=== PATIENT | male | born 1940 | race Caucasian/White ===

== ENCOUNTER 2017-04-13 09:09 | Inpatient (IN) | payer MEDICARE ==
[~2017-04-13] VITALS: Ht 165.1 cm; Wt 73.5 kg
--- NOTE | 2017-04-13 09:21 | NUR ---
Dr Sutton at the bedside for eval and exam.
[2017-04-13] MEDS ORDERED: POTA10TA15 PO (09:28)
[2017-04-13] MEDS ORDERED: FOLI1TAB16 PO (09:28)
[2017-04-13] MEDS ORDERED: METO-302 PO (09:28)
[2017-04-13] MEDS ORDERED: METHOTREXATE SQ (09:28)
[2017-04-13] MEDS ORDERED: OMEP40CA37 PO (09:28)
[2017-04-13] MEDS ORDERED: ASPIRIN 81 MG TAB.CHEW PO ONE (09:30)
[2017-04-13] MEDS ORDERED: ASPIRIN 81 MG TAB.CHEW ONE (09:43)
--- NOTE | 2017-04-13 10:00 | NUR ---
Patient is resting comfortably in bed, drnies chest pain and SOB.
[2017-04-13 10:10] LABS: BASOPHILS % (AUTO) 0.4 % (0.0-2.0); EOSINOPHILS # (AUTO) 0.1 K/uL (0.0-0.7); EOSINOPHILS % (AUTO) 2.6 % (0.0-7.0); HEMATOCRIT 35.3 % (40-50); HEMOGLOBIN 11.5 G/DL (14.0-18.0); LYMPHOCYTES # (AUTO) 0.6 K/UL (0.8-4.8); LYMPHOCYTES % (AUTO) 11.5 % (20.5-51.5); MEAN CORPUSCULAR HEMOGLOBIN 33.5 UUG (27.0-31.0); MEAN CORPUSCULAR HGB CONC 32 g/dL (32.0-37.0); MEAN CORPUSCULAR VOLUME 103.1 FL (82.0-92.0); MONOCYTES # (AUTO) 0.6 K/UL (0.1-1.30); MONOCYTES % (AUTO) 11.4 % (0.0-11.0); NEUTROPHILS # (AUTO) 3.9 K/UL (1.8-8.9); NEUTROPHILS % (AUTO) 74.1 % (38.5-71.5); PLATELET COUNT (AUTO) 161 K/UL (150-450); RED BLOOD CELL COUNT(AUTO) 3.43 MIL/UL (4.7-6.1); WHITE BLOOD COUNT (AUTO) 5.2 K/UL (4.0-11.2)
[2017-04-13 10:18] LABS: CARBON DIOXIDE 25 mmol/L (21-32); CHLORIDE 108 mmol/L (98-107); CREATININE 1.1 mg/dL (0.6-1.3); GLUCOSE 104 mg/dL (74-106); POTASSIUM 4.2 mmol/L (3.5-5.1); UREA NITROGEN, BLOOD 25 mg/dL (7-18)
[2017-04-13 10:31] LABS: ALANINE AMINOTRANSFERASE 12 U/L (16-63); ALKALINE PHOSPHATASE 92 U/L (50-136); ASPARTATE AMINOTRANSFERASE 20 U/L (15-37); BILIRUBIN,DIRECT 0.1 mg/dL (0.0-0.2); BILIRUBIN,TOTAL 0.5 mg/dL (0.2-1.0); TOTAL PROTEIN, SERUM 6.7 g/dL (6.4-8.2)
--- NOTE | 2017-04-13 11:17 | NUR ---
PT NOT CANDIDATE FOR MRSA. BELONGING LIST COMPLETED.
[2017-04-13 11:30] VITALS: BP 142/62
--- NOTE | 2017-04-13 11:59 | NUR ---
NEW ADMISSION ARRIVED TO ROOM 226 WITH DX CHEST PAIN. PATIENT A+OX4. SB ON TELEMETRY. DENIED CP AT THIS TIME. VSS. CALLED PLACED TO DR. AHUJA.
[2017-04-13] MEDS ORDERED: HYDROCODONE/APAP 5-325MG TABLET PO PRN (15:45)
[2017-04-13] MEDS ORDERED: MAGNESIUM HYDROXIDE 30 ML LIQUID UDC PO PRN (15:45)
[2017-04-13] MEDS ORDERED: ONDANSETRON 4 MG/2 ML VIAL IV PRN (15:45)
[2017-04-13] MEDS ORDERED: ZOLPIDEM 5 MG TABLET PO PRN (15:45)
[2017-04-13] MEDS ORDERED: ACETAMINOPHEN 325 MG TABLET PO PRN (15:45)
[2017-04-13 16:09] VITALS: BP 98/54
--- NOTE | 2017-04-13 18:46 | NUR ---
END OF SHIFT NOTE: PATIENT IN NO ACUTE DISTRESS THROUGHOUT SHIFT. VSS. DENIED CP. H.L. INTACT AND PATENT. BRP. PATIENT SEEN BY IT HELP DESK TECHNICIAN. NEW ORDERS RECEIVED FOR LEXISCAN AT 2 PM TOMORROW 04/14/17.
[2017-04-13 20:26] VITALS: BP 95/48
[2017-04-13] MEDS ORDERED: DOCUSATE SODIUM 250 MG CAPSULE PO SCH (21:00)
[2017-04-13] MEDS: METOPROLOL TARTRATE 25 MG TABLET PO SCH (21:00)
[2017-04-13] MEDS ORDERED: DOCUSATE SODIUM 100 MG CAPSULE PO SCH (21:00)
[2017-04-13] MEDS ORDERED: ATORVASTATIN 20 MG TABLET PO SCH (21:00)
--- NOTE | 2017-04-13 21:00 | NUR ---
RES IN BED, RESTING COMFORTABLY. RESP IS EVEN AND UNLABORED, NO SOB. NO ACUTE DISTRESS. B/P NOTED AT 95/48 AND HR 52, METOPROLOL HELD. WILL CONT TO MONITOR. CONSENT FORM FOR LEXISCAN SIGNED BY PT.
[2017-04-14 00:19] VITALS: BP 127/65
[2017-04-14 04:58] VITALS: BP 97/56
--- NOTE | 2017-04-14 06:07 | NUR ---
RES IN BED, A&OX4. RESP IS EVEN AND UNLABORED. NO ACUTE DISTRESS. TELE IS SR. NO C/O PAIN OR DISCOMFORT. SAFETY MAINTAINED THROUGHOUT SHIFT. CALL LIGHT WITHIN REACH.
[2017-04-14 06:37] LABS: BASOPHILS % (AUTO) 0.7 % (0.0-2.0); EOSINOPHILS # (AUTO) 0.3 K/uL (0.0-0.7); EOSINOPHILS % (AUTO) 4.9 % (0.0-7.0); HEMATOCRIT 36.6 % (40-50); HEMOGLOBIN 11.9 G/DL (14.0-18.0); LYMPHOCYTES % (AUTO) 17.3 % (20.5-51.5); MEAN CORPUSCULAR HEMOGLOBIN 33.6 UUG (27.0-31.0); MEAN CORPUSCULAR HGB CONC 33 g/dL (32.0-37.0); MEAN CORPUSCULAR VOLUME 103.6 FL (82.0-92.0); MONOCYTES # (AUTO) 0.7 K/UL (0.1-1.30); MONOCYTES % (AUTO) 11.6 % (0.0-11.0); NEUTROPHILS % (AUTO) 65.5 % (38.5-71.5); PLATELET COUNT (AUTO) 145 K/UL (150-450); RED BLOOD CELL COUNT(AUTO) 3.54 MIL/UL (4.7-6.1)
[2017-04-14 06:53] LABS: ALANINE AMINOTRANSFERASE 20 U/L (16-63); ALKALINE PHOSPHATASE 97 U/L (50-136); ASPARTATE AMINOTRANSFERASE 18 U/L (15-37); BILIRUBIN,TOTAL 0.8 mg/dL (0.2-1.0); CARBON DIOXIDE 29 mmol/L (21-32); CHLORIDE 108 mmol/L (98-107); CHOLESTEROL 132 mg/dL (<200); CREATININE 1.2 mg/dL (0.6-1.3); GLUCOSE 90 mg/dL (74-106); HDL CHOLESTEROL 40 mg/dL (40-60); PHOSPHOROUS 2.8 mg/dL (2.5-4.9); POTASSIUM 3.9 mmol/L (3.5-5.1); TOTAL PROTEIN, SERUM 6.9 g/dL (6.4-8.2); TRIGLYCERIDES 98 MG/DL (30-150); UREA NITROGEN, BLOOD 16 mg/dL (7-18)
[2017-04-14 06:58] LABS: THYROID STIMULATING HORMONE 1.133 mIU/mL (0.358-3.740)
[2017-04-14] MEDS ORDERED: PANTOPRAZOLE SODIUM 40 MG TABLET.DR PO SCH (07:00)
[2017-04-14] MEDS: METOPROLOL TARTRATE 25 MG TABLET PO SCH (08:13)
--- NOTE | 2017-04-14 08:30 | NUR ---
AWAKE ALERT COOPERATE WELL NO CHEST PAIN OR SOB WILL NPO AFTER EAT BREAKFAST PATIENT WAS AWARE OF SCHEDULE FOR LEXISCAN TODAY AT 1400PM RESTING WELL WITH CALL VAZQUEZ IN REACH
[2017-04-14] MEDS ORDERED: FOLIC ACID 1 MG TABLET PO SCH (09:00)
[2017-04-14] MEDS ORDERED: ISOSORBIDE MONONITRATE 30 MG TAB.SR.24H PO SCH (09:00)
[2017-04-14] MEDS ORDERED: ASPIRIN 81 MG TAB.CHEW PO SCH (09:00)
[2017-04-14 11:13] VITALS: BP 99/60
--- NOTE | 2017-04-14 12:00 | NUR ---
ECCHO CARDIOGRAM AT BEDSIDE ANGELICA PROCEDURE WELL
--- NOTE | 2017-04-14 13:35 | NUR ---
TO LEXISCAN VIA W/C CONDITION STABLE
[2017-04-14] MEDS ORDERED: REGADENOSON 0.4 MG/5 ML PREFILLED SYR IV ONE (14:00)
--- NOTE | 2017-04-14 14:30 | NUR ---
BACK TO ROOM EAT LUNCH WELL WILL GO DOWN TO FINISH LEXISCAN LATER
[2017-04-14 15:11] VITALS: BP 99/57
--- NOTE | 2017-04-14 18:00 | NUR ---
HEMODYNAMIC STATUS STABLE LEXISCAN RESULT WAS NEGATIVE AND DR SOTELO WAS ORDER OK TO D/C HOME F/U WITH RIGGING ENGINEER AND CONTINUE MEDICATION PRECRIPTION ORDER AND PATIENT WAS INFORM VERBALIZES UNDERSTAND
[2017-04-14] MEDS ORDERED: ATOR10TA PO (19:30)
[2017-04-14] MEDS ORDERED: ASPI81TA31 PO (19:30)
[2017-04-14] MEDS ORDERED: Isosorbide Mononitrate PO (19:30)
--- NOTE | 2017-04-14 19:30 | NUR ---
PT RECEIVED IN BED, AWAKE. A/OX4. ABLE TO MAKE NEEDS KNOWN. V/S STABLE. NO ACUTE DISTRESS NOTED. NO COMPLAINTS OF PAIN AT THIS TIME. WITH PT TO DISCUSS DISCHARGE. SAFETY MEASURE IMPLEMENTED. CALL LIGHT WITHIN REACH. WILL CONTINUE TO MONITOR.
[2017-04-14 19:58] VITALS: BP 95/54
--- NOTE | 2017-04-14 21:50 | NUR ---
PT DISCHARGED FROM MED SURG DEPT TO HOME. PT IN STABLE CONDITION. NO ACUTE DISTRESS NOTED. IV D/C. DISCHARGE INSTRUCTIONS AND PRESCRIPTION PROVIDED.
== END 2017-04-14 21:50 | disposition home or self-care (01) | DRG 303 ==
LOC: ER 09:09 → TELE 11:04 → MED 04-14 15:39
PROVIDERS: ADMIT Internal Medicine; ATTEND Internal Medicine
DX: I25.118 Atherosclerotic heart disease of native coronary artery with other forms of angina pectoris (principal); I10 Essential (primary) hypertension; Z86.718 Personal history of other venous thrombosis and embolism; M06.9 Rheumatoid arthritis, unspecified; Z79.899 Other long term (current) drug therapy; K21.9 Gastro-esophageal reflux disease without esophagitis; I48.91 Unspecified atrial fibrillation; D53.9 Nutritional anemia, unspecified
CPT/HCPCS: 36415; 70030-TC; 71010; 78452; 83735; 84100; 84443; 85025; 85730; 93005; 93307; 97161; A4663; A9502; J2785

== ENCOUNTER 2017-07-29 21:04 | Inpatient (IN) | payer MEDICARE ==
[~2017-07-29] VITALS: Ht 165.1 cm; Wt 79.8 kg
[~2017-07-29 21:04] MED LIST: ASPI81TA31 PO; ATOR10TA PO; FOLI1TAB16 PO; Isosorbide Mononitrate PO; METHOTREXATE SQ; METO-302 PO; OMEP40CA37 PO; POTA10TA15 PO
[2017-07-29] MEDS ORDERED: MAG HYDROX/AL HYDROX/SIMETH 30 ML LIQUID UDC PO ONE (21:30)
[2017-07-29] MEDS ORDERED: PANTOPRAZOLE SODIUM 40 MG VIAL IV ONE (21:30)
[2017-07-29] MEDS ORDERED: ASPIRIN 81 MG TAB.CHEW PO ONE (21:30)
[2017-07-29] MEDS ORDERED: NITROGLYCERIN 0.4 MG/TAB BOTTLE SL ONE ×2 (21:30→21:47)
[2017-07-29 21:33] LABS: BASOPHILS % (AUTO) 0.5 % (0.0-2.0); EOSINOPHILS # (AUTO) 0.4 K/uL (0.0-0.7); EOSINOPHILS % (AUTO) 4.1 % (0.0-7.0); HEMATOCRIT 33.4 % (40-50); HEMOGLOBIN 10.9 G/DL (14.0-18.0); LYMPHOCYTES # (AUTO) 1.3 K/UL (0.8-4.8); LYMPHOCYTES % (AUTO) 15.5 % (20.5-51.5); MEAN CORPUSCULAR HEMOGLOBIN 32.8 UUG (27.0-31.0); MEAN CORPUSCULAR HGB CONC 33 g/dL (32.0-37.0); MONOCYTES # (AUTO) 0.6 K/UL (0.1-1.30); MONOCYTES % (AUTO) 7.1 % (0.0-11.0); NEUTROPHILS # (AUTO) 6.3 K/UL (1.8-8.9); NEUTROPHILS % (AUTO) 72.8 % (38.5-71.5); PLATELET COUNT (AUTO) 212 K/UL (150-450); RED BLOOD CELL COUNT(AUTO) 3.34 MIL/UL (4.7-6.1); WHITE BLOOD COUNT (AUTO) 8.6 K/UL (4.0-11.2)
[2017-07-29 21:38] LABS: CARBON DIOXIDE 28 mmol/L (21-32); CHLORIDE 111 mmol/L (98-107); CREATININE 1.6 mg/dL (0.6-1.3); GLUCOSE 85 mg/dL (74-106); POTASSIUM 3.9 mmol/L (3.5-5.1); UREA NITROGEN, BLOOD 28 mg/dL (7-18)
[2017-07-29] MEDS ORDERED: PANTOPRAZOLE SODIUM 40 MG VIAL ONE (21:47)
[2017-07-29] MEDS ORDERED: MAG HYDROX/AL HYDROX/SIMETH 30 ML LIQUID UDC ONE (21:47)
[2017-07-29] MEDS ORDERED: ASPIRIN 81 MG TAB.CHEW ONE (21:47)
[2017-07-29 21:53] LABS: ALANINE AMINOTRANSFERASE 18 U/L (16-63); ALKALINE PHOSPHATASE 111 U/L (50-136); ASPARTATE AMINOTRANSFERASE 14 U/L (15-37); BILIRUBIN,DIRECT 0.1 mg/dL (0.0-0.2); BILIRUBIN,TOTAL 0.4 mg/dL (0.2-1.0)
--- NOTE | 2017-07-29 21:55 | NUR ---
Radiology at bedside for US.
[2017-07-29] MEDS ORDERED: HYDR200T PO (22:11)
[2017-07-29] MEDS ORDERED: METO25TA6 PO (22:11)
[2017-07-29] MEDS ORDERED: IV NORMAL SALINE 1000 ML BAG IV ONE (22:15)
[2017-07-29] MEDS ORDERED: ISOS30TA6 PO (22:34)
[2017-07-29] MEDS ORDERED: VANCOMYCIN IV 1,000 MG in IV DEXTROSE 5% 250 ML IV ONE (22:45)
[2017-07-29] MEDS ORDERED: MORPHINE SULFATE 2 MG/1 ML DISP.SYRIN IV ONE (22:45)
[2017-07-29] MEDS ORDERED: ONDANSETRON 4 MG/2 ML VIAL IV ONE (22:45)
[2017-07-29] MEDS ORDERED: VANCOMYCIN IV 200 ML ONE (22:50)
[2017-07-29] MEDS ORDERED: MORPHINE SULFATE 2 MG/1 ML DISP.SYRIN ONE (22:50)
[2017-07-29] MEDS ORDERED: ONDANSETRON 4 MG/2 ML VIAL ONE (22:50)
[2017-07-29] MEDS ORDERED: MORPHINE SULFATE 4 MG/1 ML DISP.SYRIN IV ONE (23:30)
[2017-07-29] MEDS ORDERED: MORPHINE SULFATE 4 MG/1 ML DISP.SYRIN ONE (23:44)
[2017-07-30] MEDS ORDERED: HYDROMORPHONE 1 MG/1 ML DISP.SYRIN ONE (00:08)
[2017-07-30] MEDS ORDERED: AZITHROMYCIN IV 500 MG in IV DEXTROSE 5% 250 ML IV ONE (01:00)
[2017-07-30] MEDS ORDERED: CEFTRIAXONE 1 G in IV DEXTROSE 5% 50 ML IV ONE (01:00)
[2017-07-30] MEDS ORDERED: CEFTRIAXONE 1 G VIAL ONE (01:28)
[2017-07-30] MEDS ORDERED: AZITHROMYCIN 500 MG VIAL IV ONE (01:28)
[2017-07-30] MEDS ORDERED: Z GUARD REMEDY PASTE 57 GM TUBE TOP PRN (01:45)
[2017-07-30] MEDS ORDERED: MAGNESIUM HYDROXIDE 30 ML LIQUID UDC PO PRN (01:45)
[2017-07-30] MEDS ORDERED: ACETAMINOPHEN 325 MG TABLET PO PRN (01:45)
[2017-07-30] MEDS ORDERED: ZOLPIDEM 5 MG TABLET PO PRN (01:45)
[2017-07-30] MEDS ORDERED: ONDANSETRON 4 MG/2 ML VIAL IV PRN (01:45)
[2017-07-30] MEDS ORDERED: HYDROCODONE/APAP 5-325MG TABLET PO PRN (01:45)
[2017-07-30 02:00] VITALS: BP 149/59
--- NOTE | 2017-07-30 02:50 | NUR ---
Pt. admitted to TELE, under care of Dr. Woodall Belongs List completed
[2017-07-30] MEDS ORDERED: HYDROCODONE/APAP 5-325MG TABLET ONE (02:55)
--- NOTE | 2017-07-30 03:00 | NUR ---
received pt from emergency room. pleasant and cooperative. admitted for chest pain/pneumonia. denies any chest pain, c/o 4/10 pain to right foot ulcers.( pt was given dilaudid in the er prior to admission) receiving o2 at 2 lpm via nc (sa o2 is 96% with oxygen) pt was oriented to unit, made comfortable, and call light was placed in reach. assisted to all needs. will continue to monitor closely.
[2017-07-30 04:00] VITALS: BP 127/58
--- NOTE | 2017-07-30 04:01 | NUR ---
PRN norco given at this time, for right foot pain 03/15.
--- NOTE | 2017-07-30 05:00 | NUR ---
appears to be asleep. lobby attendant shows bradycardia, 56 bpm. no distress noted.
[2017-07-30] MEDS: PANTOPRAZOLE SODIUM 40 MG TABLET.DR PO SCH (07:12)
--- NOTE | 2017-07-30 08:00 | NUR ---
Discussed plan of care with pt re: wound care/wound eval today Left and right foot, Fall precaution, proper pain management, Pt agreeable with plan of care. Call light is within reach.
[2017-07-30] MEDS: FOLIC ACID 1 MG TABLET PO SCH (08:14)
[2017-07-30] MEDS: ASPIRIN 81 MG TAB.CHEW PO SCH (08:14)
[2017-07-30] MEDS: ISOSORBIDE MONONITRATE 30 MG TAB.SR.24H PO SCH (08:14)
[2017-07-30 08:50] LABS: *BILIRUBIN,URIN NEGATIVE (NEGATIVE); *BLOOD, URINE NEGATIVE (NEGATIVE); *CLARITY,URINE CLEAR (CLEAR); *COLOR,URINE YELLOW (YELLOW); *KETONES,URINE NEGATIVE (NEGATIVE); *PROTEIN,URINE 1+ (NEGATIVE); *UROBILINOGEN,URINE 0.2 E.U./dl (NORMAL); LEUKOCYTE ESTERASE ,URINE NEGATIVE (NEGATIVE); NITRITE, URINE NEGATIVE (NEGATIVE); PH,URINE 5.5 (5.0-8.0); UGLUCOSE NEGATIVE (NEGATIVE)
[2017-07-30] MEDS ORDERED: FUROSEMIDE 40 MG/4 ML VIAL IV SCH (09:00)
[2017-07-30] MEDS ORDERED: POTASSIUM CHLORIDE 20 MEQ TAB.PRT.SR PO SCH (09:00)
[2017-07-30] MEDS ORDERED: HYDROXYCHLOROQUINE SULFATE 200 MG TABLET PO SCH (09:00)
[2017-07-30] MEDS ORDERED: Medication Not On Formulary EA (Omeprazole 1 CAP) PO SCH (09:00)
[2017-07-30] MEDS ORDERED: ALBUTEROL SULFATE 2.5 MG/3 ML NEBU NEB PRN (09:45)
[2017-07-30] MEDS ORDERED: MORPHINE SULFATE 2 MG/1 ML DISP.SYRIN IV PRN (09:45)
[2017-07-30 10:19] LABS: CARBON DIOXIDE 28 mmol/L (21-32); CHLORIDE 106 mmol/L (98-107); CREATININE 1.4 mg/dL (0.6-1.3); GLUCOSE 116 mg/dL (74-106); POTASSIUM 4.1 mmol/L (3.5-5.1); UREA NITROGEN, BLOOD 24 mg/dL (7-18)
[2017-07-30 10:21] LABS: IRON, SERUM 106 ug/dL (50-175)
[2017-07-30 10:24] LABS: BASOPHILS % (AUTO) 0.3 % (0.0-2.0); EOSINOPHILS # (AUTO) 0.3 K/uL (0.0-0.7); EOSINOPHILS % (AUTO) 3.9 % (0.0-7.0); HEMATOCRIT 36.5 % (40-50); HEMOGLOBIN 11.8 G/DL (14.0-18.0); LYMPHOCYTES # (AUTO) 0.6 K/UL (0.8-4.8); LYMPHOCYTES % (AUTO) 7.4 % (20.5-51.5); MEAN CORPUSCULAR HEMOGLOBIN 32.4 UUG (27.0-31.0); MEAN CORPUSCULAR HGB CONC 32 g/dL (32.0-37.0); MEAN CORPUSCULAR VOLUME 100.5 FL (82.0-92.0); MONOCYTES # (AUTO) 0.3 K/UL (0.1-1.30); MONOCYTES % (AUTO) 3.4 % (0.0-11.0); NEUTROPHILS # (AUTO) 6.3 K/UL (1.8-8.9); PLATELET COUNT (AUTO) 186 K/UL (150-450); RED BLOOD CELL COUNT(AUTO) 3.64 MIL/UL (4.7-6.1); WHITE BLOOD COUNT (AUTO) 7.5 K/UL (4.0-11.2)
[2017-07-30 10:49] LABS: ALANINE AMINOTRANSFERASE 20 U/L (16-63); ALKALINE PHOSPHATASE 110 U/L (50-136); ASPARTATE AMINOTRANSFERASE 20 U/L (15-37); BILIRUBIN,TOTAL 0.6 mg/dL (0.2-1.0); PHOSPHOROUS 3.6 mg/dL (2.5-4.9); TOTAL PROTEIN, SERUM 7.4 g/dL (6.4-8.2)
[2017-07-30 10:57] LABS: *CREATININE,URINE < 13.0 mg/dL (30-125); *URINE TOTAL PROTEIN RANDOM < 6.0 mg/dL (<150/24HR)
[2017-07-30 11:05] LABS: RBC,URINE 0-3 /HPF (0-3)
[2017-07-30 11:06] LABS: BACTERIA,URINE FEW /HPF (NONE SEEN); SQUAMOUS EPITHELIAL CELL,UR FEW /HPF (NONE SEEN)
[2017-07-30 11:07] LABS: COARSE GRANULAR CASTS,URINE 0-3 /LPF
[2017-07-30 11:14] LABS: EOSINOPHILS % (MANUAL) 4 % (0-8); LYMPHOCYTES % (MANUAL) 7 % (20-40); MONOCYTES % (MANUAL) 2 % (2-10); NEUTROPHILS % (MANUAL) 87 % (42-75)
[2017-07-30] MEDS: METOPROLOL TARTRATE 25 MG TABLET PO SCH ×2 (11:47→20:24)
[2017-07-30 11:57] VITALS: BP 107/59
--- NOTE | 2017-07-30 12:38 | NUR ---
WOUND CARE CONSULT: PT PRESENTS WITH ULCERS TO RT LATERAL FOOT AND MEDIAL ANKLE, PRESENT ON ADMISSION. RECOMMENDATIONS MADE FOR WOUND CARE AND DISCUSSED WITH NURSING STAFF. LEFT LATERAL ANKLE HAS DRY ESCHAR WITH SWELLING, REDNESS AND WARMTH TO LEFT LOWER LEG. RECOMMEND SURGICAL CONSULT. MSG LEFT WITH MARIO AT [facility] FOR DPM CONSULT. WILL SEE PRN. SCHAFER IN AGREEMENT WITH PLAN OF CARE. Addendum: 07/30/17 at 1239 by PRABHJOT REDDY RN Amended: Links added.
[2017-07-30] MEDS: HYDROXYCHLOROQUINE SULFATE 200 MG TABLET PO SCH ×2 (12:50→20:24)
[2017-07-30] MEDS ORDERED: HYDROMORPHONE 1 MG/1 ML DISP.SYRIN IV ONE ×2 (15:45)
[2017-07-30 15:48] VITALS: BP 104/58
--- NOTE | 2017-07-30 18:30 | NUR ---
Plan of care effective. Wound care nurse saw pt. No fall noted this shift. Pt's pain managed with dilaudid. Call light is within reach.
--- NOTE | 2017-07-30 19:45 | NUR ---
RECEIVED PATIENT AWAKE IN BED. A/O X4. DENIES PAIN OR DISCOMFORT AT THIS TIME. NO RESP. DISTRESS NOTED. ON O2 2L NC SATING 99%. VS WNL. ON TELE SR 62. CALL LIGHT IN REACH, ALL NEEDS ATTENDED. WILL CONTINUE TO MONITOR.
[2017-07-30 20:00] VITALS: BP 106/54
[2017-07-30] MEDS: ATORVASTATIN 10 MG TABLET PO SCH (20:24)
[2017-07-30] MEDS ORDERED: LIDOCAINE 5% OINT 35.44 GM TUBE TOP PRN (21:15)
[2017-07-30] MEDS ORDERED: HYDROCORTISONE 1% CREAM 30 GM TUBE TP ONE ×2 (21:15→22:41)
[2017-07-30] MEDS: HYDROMORPHONE 1 MG/1 ML DISP.SYRIN IV PRN (21:29)
[2017-07-30] MEDS: CEFTRIAXONE 1 G in IV DEXTROSE 5% 50 ML IV SCH (23:48)
[2017-07-31] VITALS: BP 114/52
[2017-07-31] MEDS: AZITHROMYCIN IV 250 MG in IV DEXTROSE 5% 250 ML IV SCH (00:58)
[2017-07-31] MEDS: ALPRAZOLAM 0.25 MG TABLET PO PRN ×3 (01:27→22:08)
[2017-07-31 04:00] VITALS: BP 126/58
[2017-07-31 06:33] LABS: CARBON DIOXIDE 31 mmol/L (21-32); CHLORIDE 104 mmol/L (98-107); CREATININE 1.3 mg/dL (0.6-1.3); GLUCOSE 95 mg/dL (74-106); MAGNESIUM 1.9 mg/dL (1.8-2.4); PHOSPHOROUS 3.3 mg/dL (2.5-4.9); POTASSIUM 4.3 mmol/L (3.5-5.1); UREA NITROGEN, BLOOD 25 mg/dL (7-18)
[2017-07-31 06:44] LABS: HEMOGLOBIN 10.7 G/DL (14.0-18.0); MEAN CORPUSCULAR HEMOGLOBIN 33.2 UUG (27.0-31.0); MEAN CORPUSCULAR HGB CONC 34 g/dL (32.0-37.0); PLATELET COUNT (AUTO) 121 K/UL (150-450); RED BLOOD CELL COUNT(AUTO) 3.24 MIL/UL (4.7-6.1); WHITE BLOOD COUNT (AUTO) 8.4 K/UL (4.0-11.2)
--- NOTE | 2017-07-31 06:49 | NUR ---
PATIENT ASLEEP IN BED. EASILY AROUSABLE. PATIENT IS ON TELE SR. VSS. SLEPT AT INTERVALS THROUGHOUT THE NIGHT. DENIES PAIN AT THIS TIME. CALL LIGHT IN REACH. ALL NEEDS ATTENDED. WILL CONTINUE TO MONITOR.
[2017-07-31] MEDS: PANTOPRAZOLE SODIUM 40 MG TABLET.DR PO SCH (07:03)
[2017-07-31] MEDS: HYDROMORPHONE 1 MG/1 ML DISP.SYRIN IV PRN ×3 (07:38→19:52)
[2017-07-31] MEDS: FOLIC ACID 1 MG TABLET PO SCH (08:28)
[2017-07-31] MEDS: predniSONE 5 MG TABLET PO SCH (08:28)
[2017-07-31] MEDS: ASPIRIN 81 MG TAB.CHEW PO SCH (08:28)
[2017-07-31] MEDS: METOPROLOL TARTRATE 25 MG TABLET PO SCH ×2 (08:29→20:24)
[2017-07-31] MEDS: ISOSORBIDE MONONITRATE 30 MG TAB.SR.24H PO SCH (08:29)
[2017-07-31] MEDS: HYDROXYCHLOROQUINE SULFATE 200 MG TABLET PO SCH ×2 (08:54→20:21)
[2017-07-31] MEDS: VANCOMYCIN IV 1,250 MG in IV DEXTROSE 5% 500 ML IV SCH (08:54)
[2017-07-31 09:36] LABS: BAND % (MANUAL) 2 % (0-10); EOSINOPHILS % (MANUAL) 4 % (0-8); LYMPHOCYTES % (MANUAL) 10 % (20-40); MONOCYTES % (MANUAL) 3 % (2-10); NEUTROPHILS % (MANUAL) 81 % (42-75)
[2017-07-31] MEDS: GENTAMICIN SULFATE 0.1% OINT 15 GM TUBE TOP SCH (10:28)
[2017-07-31 11:57] VITALS: BP 109/56
--- NOTE | 2017-07-31 12:33 | NUR ---
Clinical Pharmacy Note: Vancomycin Pharmacy to Dose Subjective: vancomycin to start for this 76 y/o male patient for cellulitis. Objective: height 65'' weight 176 lb BUN 25 Scr 1.3 WBC 8.4 temp 98.6 Assessment/Plan Will start vancomycin 1250mg IVPB q24 hr for predicted vancomycin trough level of 16 mcg/ml at steady state. 1st dose is due today at 0900. Plan to draw vanco trough level before 4th dose (not yet ordered). Will monitor renal function & adjust the dose if needed. Will follow
--- NOTE | 2017-07-31 15:39 | NUR ---
PAIN MEDICATION GIVEN AND WOUND DRESSINGS CHANGED ORDERED
[2017-07-31 15:44] VITALS: BP 105/55
--- NOTE | 2017-07-31 20:00 | NUR ---
RECEIVED PATIENT AWAKE IN BED. A/O X4. C/O PAIN IN BILATERAL FEET, BUT MORE PAIN PRESENT ON THE RIGHT FOOT. PATIENT GIVEN DILAUDID 0.5MG IV PRN FOR PAIN PER CARBON ROD INSERTER. ON O2 2L NC SATING WELL. NO SOB NOTED OR C/O. H/L INTACT AND PATENT. BED ALARM ON. CALL LIGHT IN REACH. ALL NEEDS ATTENDED. WILL CONTINUE TO MONITOR AND ASSESS.
[2017-07-31 20:15] VITALS: BP 121/56
[2017-07-31] MEDS: ATORVASTATIN 10 MG TABLET PO SCH (20:21)
[2017-08-01] MEDS: CEFTRIAXONE 1 G in IV DEXTROSE 5% 50 ML IV SCH (00:05)
[2017-08-01] MEDS: AZITHROMYCIN IV 250 MG in IV DEXTROSE 5% 250 ML IV SCH (01:09)
[2017-08-01 04:32] VITALS: BP 115/58
--- NOTE | 2017-08-01 06:02 | NUR ---
PATIENT ASLEEP IN BED. EASILY AROUSABLE. VSS. SLEPT WELL THROUGHOUT THE NIGHT. NO C/O PAIN. BED ALARM ON. CALL LIGHT IN REACH. ALL NEEDS ATTENDED. WILL CONTINUE TO MONITOR.
[2017-08-01] MEDS: PANTOPRAZOLE SODIUM 40 MG TABLET.DR PO SCH (06:34)
[2017-08-01] MEDS: predniSONE 5 MG TABLET PO SCH (09:00)
[2017-08-01] MEDS: FOLIC ACID 1 MG TABLET PO SCH (09:00)
[2017-08-01] MEDS: ISOSORBIDE MONONITRATE 30 MG TAB.SR.24H PO SCH (09:00)
[2017-08-01] MEDS: VANCOMYCIN IV 1,250 MG in IV DEXTROSE 5% 500 ML IV SCH (09:00)
[2017-08-01] MEDS: GENTAMICIN SULFATE 0.1% OINT 15 GM TUBE TOP SCH (09:00)
[2017-08-01] MEDS: METOPROLOL TARTRATE 25 MG TABLET PO SCH (09:00)
[2017-08-01] MEDS: ASPIRIN 81 MG TAB.CHEW PO SCH (09:00)
[2017-08-01] MEDS: HYDROXYCHLOROQUINE SULFATE 200 MG TABLET PO SCH (09:00)
[2017-08-01 09:07] LABS: A/G RATIO 1.1 (0.7-1.7); ALBUMIN 3.2 g/dL (2.9-4.4); ALPHA-1-GLOBULIN 0.3 g/dL (0.0-0.4); ALPHA-2-GLOBULIN 0.9 g/dL (0.4-1.0); BETA GLOBULIN 0.9 g/dL (0.7-1.3); GAMMA GLOBULIN 0.9 g/dL (0.4-1.8); M-SPIKE Not Observed g/dL (Not Observed)
[2017-08-01] MEDS ORDERED: CHOLECALCIFEROL 1,000 UNIT TABLET PO SCH (10:00)
[2017-08-01] MEDS ORDERED: HYDROCORTISONE 1% CREAM 30 GM TUBE TP SCH (10:30)
[2017-08-01 11:09] VITALS: BP 127/82
--- NOTE | 2017-08-01 12:42 | NUR ---
0800. PATIENT RECEIVED AWAKE ALERT AND ORIENTED. IN NO ACUTE RESPIRATORY DISTRESS. V.S.S. SITTING UP IN BED EATING BREAKFAST. PLEASANT AND COOPERATIVE. NO COMPLAINTS AT THIS TIME. THIERNO PALENCIA R.N. 07-7P. 08/01/2017. [address] [place] [address]. 1000. NO CHANGE IN CONDITION. PATIENT IS STABLE WITH NO COMPLAINTS OF PAIN OR DISCOMFORT. THIERNO PALENCIA R.N. 07-7P. 08/01/2017. [address] [place] [address]. 1200. PATIENT REMAINS STABLE. RESTING QUIETLY. KALEIGH PALENCIA R.N. 07-7P. 08/01/2017/ 2ND [facility].
--- NOTE | 2017-08-01 14:24 | NUR ---
Clinical Pharmacy Note: Vancomycin Pharmacy to Dose Subjective: vancomycin to continue for this 76 y/o male patient for cellulitis. Objective: height 65'' weight 176 lb BUN 25(07/31) Scr 1.3(07/31) WBC 8.4 (07/31) temp 98.9 Assessment/Plan Will continue vancomycin 1250mg IVPB q24 hr for predicted vancomycin trough level of 16 mcg/ml at steady state. Second dose was given today at 0900. Plan to draw vanco trough level before 4th dose (not yet ordered). Will monitor renal function & adjust the dose if needed. Will follow
--- NOTE | 2017-08-01 14:50 | NUR ---
1400. PATIENT DOZING ON AND OFF. NO DYSPNOEA NOTED. HAS BEEN A LITTLE ANXIOUS AT TIMES AND REASSURED NO COMPLAINTS OF CHEST PAIN OR ABDOMINAL DISCOMFORT. THIERNO PALENCIA R.N. 07-7P. 08/01/2017. 2ND FLOOR [facility].
[2017-08-01 15:01] VITALS: BP 125/80
[2017-08-01] MEDS ORDERED: METO25TA6 PO (16:09)
[2017-08-01] MEDS ORDERED: LIDO35.4 TOP (16:09)
[2017-08-01] MEDS ORDERED: Gentamicin Sulfate 0.1% Oint TOP (16:09)
[2017-08-01] MEDS ORDERED: ALBU2.5V7 NEB (16:09)
[2017-08-01] MEDS ORDERED: HYDR30CR10 TP (16:09)
[2017-08-01] MEDS ORDERED: PRED-170 PO (16:09)
[2017-08-01] MEDS ORDERED: ACET325T53 PO (16:09)
[2017-08-01] MEDS ORDERED: MAGN400O6 PO (16:09)
[2017-08-01] MEDS ORDERED: DOCU-141 PO (16:09)
[2017-08-01] MEDS ORDERED: ZOLP5TAB8 PO (16:09)
[2017-08-01] MEDS ORDERED: ACID1TAB4 PO (16:09)
[2017-08-01] MEDS ORDERED: CHOL10002 PO (16:09)
[2017-08-01] MEDS ORDERED: MENT71OI TOP (16:09)
[2017-08-01] MEDS ORDERED: HYDR-3326 PO (16:09)
[2017-08-01] MEDS ORDERED: PIPE3.379 IV (16:09)
[2017-08-01] MEDS ORDERED: ALPR0.25 PO (16:09)
[2017-08-01] MEDS ORDERED: ZINC220C8 PO (16:10)
[2017-08-01] MEDS ORDERED: ASCO500C16 PO (16:10)
[2017-08-01] MEDS ORDERED: LEVO500T2 PO (16:22)
[2017-08-01 16:40] LABS: BASOPHILS % (AUTO) 0.1 % (0.0-2.0); EOSINOPHILS # (AUTO) 0.3 K/uL (0.0-0.7); EOSINOPHILS % (AUTO) 2.9 % (0.0-7.0); HEMATOCRIT 36.4 % (40-50); HEMOGLOBIN 11.9 G/DL (14.0-18.0); LYMPHOCYTES # (AUTO) 0.8 K/UL (0.8-4.8); LYMPHOCYTES % (AUTO) 8.5 % (20.5-51.5); MEAN CORPUSCULAR HEMOGLOBIN 32.3 UUG (27.0-31.0); MEAN CORPUSCULAR HGB CONC 33 g/dL (32.0-37.0); MEAN CORPUSCULAR VOLUME 98.8 FL (82.0-92.0); MONOCYTES # (AUTO) 0.2 K/UL (0.1-1.30); MONOCYTES % (AUTO) 2.2 % (0.0-11.0); NEUTROPHILS # (AUTO) 8.5 K/UL (1.8-8.9); NEUTROPHILS % (AUTO) 86.3 % (38.5-71.5); PLATELET COUNT (AUTO) 170 K/UL (150-450); RED BLOOD CELL COUNT(AUTO) 3.68 MIL/UL (4.7-6.1); WHITE BLOOD COUNT (AUTO) 9.8 K/UL (4.0-11.2)
[2017-08-01 17:14] LABS: ALANINE AMINOTRANSFERASE 21 U/L (16-63); ALKALINE PHOSPHATASE 106 U/L (50-136); ASPARTATE AMINOTRANSFERASE 19 U/L (15-37); BILIRUBIN,TOTAL 0.6 mg/dL (0.2-1.0); CARBON DIOXIDE 29 mmol/L (21-32); CHLORIDE 105 mmol/L (98-107); CREATININE 1.2 mg/dL (0.6-1.3); GLUCOSE 121 mg/dL (74-106); MAGNESIUM 2.1 mg/dL (1.8-2.4); PHOSPHOROUS 3.4 mg/dL (2.5-4.9); POTASSIUM 4.6 mmol/L (3.5-5.1); TOTAL PROTEIN, SERUM 7.1 g/dL (6.4-8.2); UREA NITROGEN, BLOOD 20 mg/dL (7-18)
[2017-08-01 18:02] LABS: BAND % (MANUAL) 3 % (0-10); EOSINOPHILS % (MANUAL) 3 % (0-8); LYMPHOCYTES % (MANUAL) 8 % (20-40); MONOCYTES % (MANUAL) 4 % (2-10); NEUTROPHILS % (MANUAL) 82 % (42-75)
[2017-08-02] MEDS ORDERED: FAMOTIDINE 20 MG TABLET PO SCH (09:00)
== END 2017-08-01 18:15 | DRG 602 ==
LOC: ER 21:05 → TELE 23:00 → MED 07-31 10:51
PROVIDERS: ADMIT Family Medicine; ATTEND Internal Medicine
DX: L03.115 Cellulitis of right lower limb (principal); J18.9 Pneumonia, unspecified organism; N17.0 Acute kidney failure with tubular necrosis; E87.0 Hyperosmolality and hypernatremia; J91.8 Pleural effusion in other conditions classified elsewhere; L97.319 Non-pressure chronic ulcer of right ankle with unspecified severity; D68.59 Other primary thrombophilia; J47.0 Bronchiectasis with acute lower respiratory infection; I25.118 Atherosclerotic heart disease of native coronary artery with other forms of angina pectoris; L03.116 Cellulitis of left lower limb; I11.9 Hypertensive heart disease without heart failure; M06.9 Rheumatoid arthritis, unspecified; Z98.890 Other specified postprocedural states; I87.2 Venous insufficiency (chronic) (peripheral); B96.5 Pseudomonas (aeruginosa) (mallei) (pseudomallei) as the cause of diseases classified elsewhere; E86.0 Dehydration; Z79.899 Other long term (current) drug therapy; Z74.09 Other reduced mobility; K21.9 Gastro-esophageal reflux disease without esophagitis; K44.9 Diaphragmatic hernia without obstruction or gangrene; D64.9 Anemia, unspecified; I73.9 Peripheral vascular disease, unspecified; Z86.718 Personal history of other venous thrombosis and embolism
CPT/HCPCS: 36415; 70030-TC; 71010; 71250; 76770; 82306; 83550; 83735; 83970; 84100; 84155; 84156; 84165; 84300; 85025; 85651; 85730; 86140; 87040; 87070; 87077; 93005; A4663; C9113; J0456; J0696; J1170; J1940; J2270; J2405; J3370; J7030; J7040; J7060; J7512

== ENCOUNTER 2021-09-28 12:57 | Inpatient (IN) | payer MEDICARE ==
[~2021-09-28] VITALS: Ht 162.6 cm; Wt 65.4 kg
[~2021-09-28 12:57] MED LIST changes: +ACET325T53 PO; +ACID1TAB4 PO; +ALBU2.5V7 NEB; +ALPR0.25 PO; +ASCO500C6 PO; +CHOL10002 PO; +DOCU-141 PO; -FOLI1TAB16 PO; +FOLI1TAB94 PO; +Gentamicin Sulfate 0.1% Oint TOP; +HYDR-3326 PO; +HYDR200T81 PO; +HYDR30CR10 TP; +ISOS30TA86 PO; -Isosorbide Mononitrate PO; +LEVO500T2 PO; +LIDO35.4 TOP; +MAGN400O6 PO; +MENT71OI TOP; -METO-302 PO; +METO25TA6 PO; +OMEP40CA21 PO; -OMEP40CA37 PO; +PIPE3.379 IV; -POTA10TA15 PO; +PRED-170 PO; +ZINC1CAP2 PO; +ZOLP5TAB8 PO
[2021-09-28] MEDS ORDERED: FURO-151 PO (13:23)
[2021-09-28] MEDS ORDERED: POTA10CA43 PO (13:25)
[2021-09-28] MEDS ORDERED: OMEP40CA21 PO (13:25)
[2021-09-28] MEDS ORDERED: ATOR20TA PO (13:25)
[2021-09-28] MEDS ORDERED: RIVA10TA PO (13:25)
[2021-09-28] MEDS ORDERED: FUROSEMIDE 40 MG/4 ML VIAL IV ONE (13:30)
[2021-09-28] MEDS ORDERED: FUROSEMIDE 40 MG/4 ML VIAL ONE (13:45)
[2021-09-28 13:50] LABS: HEMATOCRIT 37.1 % (36.7-47.1); MEAN CORPUSCULAR HEMOGLOBIN 32.8 uug (23.8-33.4); MEAN CORPUSCULAR VOLUME 100.8 fL (73.0-96.2); PLATELET COUNT (AUTO) 252 K/uL (152-348)
[2021-09-28 14:08] LABS: BILIRUBIN,TOTAL 0.6 mg/dL (0.2-1.0); POTASSIUM 3.6 mmol/L (3.5-5.1); TOTAL PROTEIN, SERUM 7.4 g/dL (6.4-8.2)
[2021-09-28] MEDS ORDERED: ONDANSETRON 4 MG/2 ML VIAL IV PRN (14:15)
[2021-09-28] MEDS ORDERED: ACETAMINOPHEN 325 MG TABLET PO PRN (14:15)
[2021-09-28] MEDS ORDERED: MAGNESIUM HYDROXIDE 30 ML LIQUID UDC PO PRN (14:15)
[2021-09-28] MEDS ORDERED: Z GUARD REMEDY PASTE 57 GM TUBE TOP PRN (14:15)
[2021-09-28 14:22] LABS: *BILIRUBIN,URIN NEGATIVE (NEGATIVE); *BLOOD, URINE NEGATIVE (NEGATIVE); *CLARITY,URINE CLEAR (CLEAR); *COLOR,URINE YELLOW (YELLOW); *KETONES,URINE NEGATIVE (NEGATIVE); *UROBILINOGEN,URINE 0.2 E.U./dl (NORMAL); LEUKOCYTE ESTERASE ,URINE NEGATIVE (NEGATIVE); NITRITE, URINE NEGATIVE (NEGATIVE); PH,URINE 5.5 (5.0-8.0); UGLUCOSE NEGATIVE (NEGATIVE)
[2021-09-28] MEDS ORDERED: ASPIRIN 81 MG TAB.CHEW PO SCH (15:45)
[2021-09-28] MEDS ORDERED: ASPIRIN 81 MG TAB.CHEW PO ONE (15:45)
[2021-09-28] MEDS ORDERED: ASPIRIN 81 MG TAB.CHEW ONE (15:46)
--- NOTE | 2021-09-28 15:49 | NUR ---
Note magdy in EDM - 09/28/21 at 1626 by BERYL pt resting, using own phone. pt deneis any cp, sob, n/v or dizziness or any complain at this time.
[2021-09-28] MEDS ORDERED: METOPROLOL TARTRATE 25 MG TABLET PO SCH (21:00)
[2021-09-28] MEDS: ATORVASTATIN 20 MG TABLET PO SCH (21:00)
--- NOTE | 2021-09-29 00:01 | NUR ---
Report given to Radha EDWARDS Tele.
--- NOTE | 2021-09-29 01:00 | NUR ---
Received patient via gurney. Admitted to room 308-Tele, under the care of Brady Santoyo ASSISTANT TRACK COACH, with primary diagnosis of acute possible CHF and secondary diagnosis of NSTEMI and dyspnea. AAOx4. Oriented patient to room, bed and call light button. Patient denies SOB, chest pain or dizziness at this time. On room, saturating at 93%. Attached to tele monitor, with HR of 86bpm. Gtube accidentally dislodged, possibly from ER, now closed and unable to reinsert sandoval catheter, notified ASSISTANT TRACK COACH air conditioning equipment mechanic. ASSISTANT TRACK COACH advised that GI consult will be done later in the morning. Cleansed GT site with NS and covered with clean dressing. Sacral redness noted, skin issues were noted and photos were taken and attached to chart. Pt had due PO medications, unable to administer to disruption in access, notified ASSISTANT TRACK COACH. IV medications were ordered accordingly. Aspiration precautions and comfort measures initiated. Will continue to monitor.
[2021-09-29 01:40] VITALS: BP 136/66
[2021-09-29] MEDS ORDERED: DEXTROSE 50% 50 ML DISP.SYRIN IV PRN (02:30)
[2021-09-29 04:50] VITALS: BP 141/62
[2021-09-29] MEDS: METOPROLOL TARTRATE 5 MG/5 ML VIAL IVP SCH ×4 (06:11→23:32)
[2021-09-29] MEDS: BLOOD SUGAR DIAGNOSTIC 1 EACH STRIP VI SCH ×5 (06:23→21:46)
[2021-09-29] MEDS ORDERED: PANTOPRAZOLE SODIUM 40 MG TABLET.DR PO SCH (07:00)
--- NOTE | 2021-09-29 07:27 | NUR ---
Patient slept through the night with no complaints. Patient denies SOB, chest pain or dizziness. Repeat troponin results of 0.249, trending down. IV site still intact.AC accuchek done, results of 52mg/dl, PRN medication was given as ordered. AC Accuchek now showing results of 95mg/dl. All needs were attended to and met. Aspiration precaution and comfort measures maintained. Will endorse to day shift.
[2021-09-29 08:00] VITALS: BP 122/57
--- NOTE | 2021-09-29 08:00 | NUR ---
RECEIVED PATIENT RESTING IN BED A/OX4 ABLE TO MAKE NEEDS KNOWN. DR ARCHER IN WITH ORDER FOR ST EVAL AND GI CONSULT DUE TO DISLODGE GT . PER PATIENT GT WAS DISLODGED IN ER. CONTINUE BARRY MONITORING. SR ON MONITOR
[2021-09-29] MEDS ORDERED: IV D5 1/2 NS 1000 ML 1,000 ML IV PRN (08:30)
[2021-09-29] MEDS: ASPIRIN 81 MG TAB.CHEW PO SCH (08:48)
[2021-09-29] MEDS: ISOSORBIDE MONONITRATE 30 MG TAB.SR.24H PO SCH (08:48)
[2021-09-29] MEDS: PANTOPRAZOLE SODIUM 40 MG VIAL IV SCH (08:49)
[2021-09-29] MEDS ORDERED: FUROSEMIDE 40 MG/4 ML VIAL IV SCH (09:00)
[2021-09-29] MEDS ORDERED: FUROSEMIDE 40 MG TABLET PO SCH (09:00)
[2021-09-29 12:00] VITALS: BP 122/70
[2021-09-29 12:28] LABS: HEMATOCRIT 38.8 % (36.7-47.1); MEAN CORPUSCULAR HEMOGLOBIN 32.8 uug (23.8-33.4); MEAN CORPUSCULAR VOLUME 98.9 fL (73.0-96.2); PLATELET COUNT (AUTO) 247 K/uL (152-348)
[2021-09-29 13:09] LABS: MAGNESIUM 2.5 mg/dL (1.8-2.4); PHOSPHOROUS 4.1 mg/dL (2.5-4.9); POTASSIUM 3.2 mmol/L (3.5-5.1); TOTAL PROTEIN, SERUM 7.1 g/dL (6.4-8.2)
[2021-09-29] MEDS ORDERED: CYCL30DR EACHEYE (13:10)
[2021-09-29] MEDS ORDERED: HYDR20TA PO (13:16)
--- NOTE | 2021-09-29 13:53 | NUR ---
NO ACUTE CHANGE FROM MORNING ASSESSMENT, CONTINUE BARRY OBSERVATION SR ON MONITOR
--- NOTE | 2021-09-29 15:00 | NUR ---
DR HANNA CALLED BACK AND ADVISED TO HOLD XERALTO X2 DAYS
[2021-09-29 16:18] VITALS: BP 134/64
[2021-09-29] MEDS: RESTASIS EACHEYE SCH (16:43)
[2021-09-29] MEDS: RIVAROXABAN 10 MG TABLET PO SCH (16:44)
--- NOTE | 2021-09-29 18:20 | NUR ---
SPOKE WITH SON ANS SAID TO JUST DO VIDEO SWALLOW MAKE SURE PATIENT IS NOT ASPIRATING. REFUSED NURSING SWALLOW SCREENING
[2021-09-29 20:39] VITALS: BP 137/69
[2021-09-29] MEDS: ATORVASTATIN 20 MG TABLET PO SCH ×2 (21:00→21:34)
[2021-09-29] MEDS: HYDROCORTISONE SOD SUCCINATE 100 MG/2 ML VIAL IV SCH (21:35)
[2021-09-30 03:54] VITALS: BP 120/66
[2021-09-30] MEDS: METOPROLOL TARTRATE 5 MG/5 ML VIAL IVP SCH ×3 (06:28→17:16)
[2021-09-30] MEDS: BLOOD SUGAR DIAGNOSTIC 1 EACH STRIP VI SCH ×4 (06:34→22:17)
[2021-09-30 06:47] LABS: HEMATOCRIT 37.8 % (36.7-47.1); MEAN CORPUSCULAR HEMOGLOBIN 32.9 uug (23.8-33.4); MEAN CORPUSCULAR VOLUME 99.4 fL (73.0-96.2); PLATELET COUNT (AUTO) 227 K/uL (152-348)
--- NOTE | 2021-09-30 06:58 | NUR ---
Shift End Report: VS stable. Remain NPO as ordered awaiting for the video and speech eval. Slept well. No complaint presented. No s/s of hypo/hyperglycemia. All needs attended and met. Continue care as planned.
[2021-09-30 07:21] LABS: MAGNESIUM 2.7 mg/dL (1.8-2.4); PHOSPHOROUS 4.8 mg/dL (2.5-4.9); POTASSIUM 3.6 mmol/L (3.5-5.1)
[2021-09-30 08:00] VITALS: BP 139/69
--- NOTE | 2021-09-30 08:00 | NUR ---
Noted Left foot plantar scab. PT alert and oriented x 3. R/A on 96%. Pt is in no acute distress. Frequent turning Q2hrs implemented. Call light is within reach.
[2021-09-30] MEDS: HYDROCORTISONE SOD SUCCINATE 100 MG/2 ML VIAL IV SCH ×4 (08:51→23:37)
[2021-09-30] MEDS: ASPIRIN 81 MG TAB.CHEW PO SCH (08:51)
[2021-09-30] MEDS: PANTOPRAZOLE SODIUM 40 MG VIAL IV SCH (08:51)
[2021-09-30] MEDS: ISOSORBIDE MONONITRATE 30 MG TAB.SR.24H PO SCH (08:51)
[2021-09-30] MEDS: RESTASIS EACHEYE SCH ×2 (08:54→17:18)
[2021-09-30] MEDS ORDERED: FUROSEMIDE 40 MG/4 ML VIAL IV SCH (09:00)
[2021-09-30] MEDS ORDERED: FUROSEMIDE 20 MG/2 ML VIAL IVP SCH (09:00)
[2021-09-30] MEDS: LORAZEPAM 2 MG/1 ML VIAL IV PRN ×2 (09:59→23:31)
[2021-09-30 12:00] VITALS: BP 105/63
--- NOTE | 2021-09-30 14:00 | NUR ---
Nursing Bedside swallow eval followed accordingly. PT passed swallow eval. New order received From Dr Natanael dubois to start puree diet with strict aspiration precautions. Call light is within reach.
[2021-09-30 16:00] VITALS: BP 144/70
[2021-09-30] MEDS: INSULIN REGULAR, HUMAN 300 UNIT/3 ML VIAL SQ PRN ×2 (16:37→23:20)
[2021-09-30] MEDS: RIVAROXABAN 10 MG TABLET PO SCH (17:19)
[2021-09-30 20:18] VITALS: BP 127/63
[2021-09-30] MEDS: ATORVASTATIN 20 MG TABLET PO SCH (23:17)
[2021-10-01] MEDS: METOPROLOL TARTRATE 5 MG/5 ML VIAL IVP SCH ×2 (00:41→06:00)
[2021-10-01 04:42] VITALS: BP 149/77
--- NOTE | 2021-10-01 05:37 | NUR ---
Received alert and oriented. C/O anxiety, and wanted ativan, he fell asleep, before ativan could be given. He swalowed a single pil at mbedtime, with no ill effects. He also ate diet pudding, and tolerated it well. He woke up at 2300, and IV aTIVAN 0.5 MG was given at 2331, at his request. He woke around 0330, and was very confused, and unsteady, attempted to climb out of bed several times, he was redirected back to go to sleep, but remained bizarre, and confused. His blood pressure remained stable, all night. Bed alarm armed for safety. Will continue to monitor closely.
--- NOTE | 2021-10-01 06:31 | NUR ---
0600 dose of IV Metoprolol was not given, due to no more vials being loaded in the medication Pyxis. Last b/p taken was 149/77, hr 97. Will endorse to oncoming shift, for follow up.
[2021-10-01] MEDS: BLOOD SUGAR DIAGNOSTIC 1 EACH STRIP VI SCH ×2 (07:22→11:53)
[2021-10-01 07:47] LABS: MEAN CORPUSCULAR HEMOGLOBIN 32.4 uug (23.8-33.4); MEAN CORPUSCULAR VOLUME 99.4 fL (73.0-96.2); PLATELET COUNT (AUTO) 249 K/uL (152-348)
[2021-10-01 07:59] LABS: CREATININE 1.2 mg/dL (0.6-1.3)
[2021-10-01] MEDS: INSULIN REGULAR, HUMAN 300 UNIT/3 ML VIAL SQ PRN ×2 (08:28→12:21)
--- NOTE | 2021-10-01 08:30 | NUR ---
PATIENT SEEN AND EXAMINED BY DR MORTON NUCLEAR ENGINEERING TECHNICIAN POTASSIUM LEVEL ID 3.0 WITH ORDER FOR 40 MEQ POTASSIUM IV AND NOTED.
[2021-10-01] MEDS: ISOSORBIDE MONONITRATE 30 MG TAB.SR.24H PO SCH (08:37)
[2021-10-01] MEDS: PANTOPRAZOLE SODIUM 40 MG VIAL IV SCH (08:37)
[2021-10-01] MEDS: ASPIRIN 81 MG TAB.CHEW PO SCH (08:37)
[2021-10-01] MEDS: RESTASIS EACHEYE SCH (08:54)
--- NOTE | 2021-10-01 09:15 | NUR ---
PATIENT SEEN BY THE SLT AND STATED TO KEEP PATIENT ON PUREED DIET TODAY AND WILL WAIT TO SEE HOW HE TOLERATES BY TOMORROW BEFORE DOING THE VIDEO EVAL.
[2021-10-01] MEDS: HYDROCORTISONE SOD SUCCINATE 100 MG/2 ML VIAL IV SCH ×2 (09:18→13:00)
[2021-10-01] MEDS ORDERED: POTASSIUM CHLORIDE 50 ML IV SCH (09:30)
--- NOTE | 2021-10-01 10:42 | NUR ---
IV SITE INFILTERATED DR TALA SNEED HERE AND STATED THAT THE PLAN IS TO DISCHARGE PATIENT TODAY STATED TO DO NOT REINSERT THE IV JUST CHANGE THE POTASSIUM TO PO AND NOTED PATIENT AWARE AND STATED WILL BE ABLE TO TAKE HIS POTASSIUM ORALLY ORDERED AT THIS TIME.
[2021-10-01] MEDS ORDERED: POTASSIUM CHLORIDE 20 MEQ POWDER PACKET PO ONE (10:45)
[2021-10-01 11:55] VITALS: BP 116/54
--- NOTE | 2021-10-01 13:07 | NUR ---
PATIENT HAS NO IV SITE IS BEING PREPPED FOR DISCHARGE RACH CROWDER NOT GIVEN MD AWARE.
--- NOTE | 2021-10-01 15:00 | NUR ---
DISCHARGE ORDER NOTED PATIENT STATED THAT HIS SON JOANNA CAN PICK HIM UP ABOUT [id number] TOLERATED HIS DIET ORDERED WAS INSTRUCTED TO CONTINUE PURRED WITH MOIST GROUND MEAT AND CAN ADVANCE TO SOFT IF HE IS TOLERATING WELL AND HE EXPRESSED UNDERSTANDING
[2021-10-01 16:08] VITALS: BP 123/71
--- NOTE | 2021-10-01 16:20 | NUR ---
PATIENT DISCHARGED PICKED UP BY HIS SON JOANNA IN SATISFACTORY CONDITION WITH ALL HIS PERSONAL BELONGINGS PATIENT WAS INSTRUCTED TO CALL FOR FOLLOW UP WITH DR MORTON AND HIS PRIMARY DOCTOR WITHIN ONE WEEK AND THE HOME HEALTH WILL COME TO REASSESS HIM AT HOME WAS ALSO INSTRUCTED TO FLOAT HIS HEELS WHILE IN BED AND HE EXPRESSED UNDERSTANDING.
[2021-10-02] MEDS ORDERED: METOPROLOL SUCCINATE XL 25 MG TAB.SR.24H PO SCH (09:00)
== END 2021-10-01 16:20 | disposition home health service (06) | DRG 280 ==
LOC: ER 12:57 → TRANSITION 14:34 → TELE3 09-29 00:53 → TELE-TD3 09-29 07:13 → MEDSURG3 09-30 14:10
PROVIDERS: ADMIT Hospitalist; ATTEND Hospitalist
DX: I11.0 Hypertensive heart disease with heart failure (principal); I50.33 Acute on chronic diastolic (congestive) heart failure; I21.A1 Myocardial infarction type 2; E44.1 Mild protein-calorie malnutrition; J98.11 Atelectasis; E11.65 Type 2 diabetes mellitus with hyperglycemia; I25.10 Atherosclerotic heart disease of native coronary artery without angina pectoris; I25.2 Old myocardial infarction; I48.0 Paroxysmal atrial fibrillation; I87.2 Venous insufficiency (chronic) (peripheral); M06.9 Rheumatoid arthritis, unspecified; Z93.1 Gastrostomy status; Z86.73 Personal history of transient ischemic attack (TIA), and cerebral infarction without residual deficits; R13.10 Dysphagia, unspecified; Z79.01 Long term (current) use of anticoagulants; Z86.718 Personal history of other venous thrombosis and embolism; M19.90 Unspecified osteoarthritis, unspecified site; E88.09 Other disorders of plasma-protein metabolism, not elsewhere classified; Z68.24 Body mass index [BMI] 24.0-24.9, adult; Z20.822 Contact with and (suspected) exposure to COVID-19; D53.9 Nutritional anemia, unspecified; D72.829 Elevated white blood cell count, unspecified
CPT/HCPCS: 36415; 70030-TC; 71045; 83735; 84100; 85025; 85730; 93005; 93307; A4663; C9113; G0378; J1720; J1815; J1940; J2060; J3490; J7060